=== PATIENT | male | born 1950 | race Hispanic/Latino ===

== ENCOUNTER 2022-04-10 08:41 | Outpatient (CLI) | payer MEDICARE ==
[2022-04-10] MEDS ORDERED: Iopamidol 300 61% 100 ML VIAL FS ONE (14:20)
== END 2022-04-10 08:42 | disposition home or self-care (01) ==
LOC: CSHCT 08:41
PROVIDERS: ATTEND Physician Assistant Medical
DX: R14.0 Abdominal distension (gaseous) (principal); Z86.19 Personal history of other infectious and parasitic diseases; R10.10 Upper abdominal pain, unspecified; K59.00 Constipation, unspecified; R16.0 Hepatomegaly, not elsewhere classified; I81 Portal vein thrombosis; K55.039 Acute (reversible) ischemia of large intestine, extent unspecified
CPT/HCPCS: 71260; 74177; 82565; Q9967